=== PATIENT | male | born 1955 | race American Indian/Alaskan Native ===

== ENCOUNTER 2019-03-31 12:31 | Outpatient (CLI) | payer OTHER | END 2019-03-31 12:32 | disposition home or self-care (01) | LOC: LABHHL 12:31 | PROVIDERS: ATTEND Family Medicine | DX: R90.81 Abnormal echoencephalogram (principal); R94.01 Abnormal electroencephalogram [EEG] | CPT/HCPCS: 36415; 84484 ==